=== PATIENT | male | born 1990 | race African-American/Black ===

== ENCOUNTER 2017-01-02 08:50 | Emergency (ER) | payer SELFPAY ==
[~2017-01-02] VITALS: Ht 185.4 cm; Wt 70.0 kg
[~2017-01-02 08:50] MED LIST: IBUP-232 PO; PROC10TA4 PO; Z.0.NO CURRENT MEDS
[2017-01-02 08:51] VITALS: BP 135/88; PULSE 75; RESP 15; TEMP 98.1; O2SAT 95
--- NOTE | 2017-01-02 09:15 | PD ---
HPI Chief Complaint: Skin Problem Time Seen by Provider: 09:15 Travel History International Travel<30 days: No Contact w/Intl Traveler<30days: No Traveled to known affect area: No History of Present Illness HPI 26-year-old male presents to the emergency Department with complaint of a lump to his right groin area days he noticed approximately 2 weeks ago. He denies fever, chills, nausea, vomiting, abdominal pain. Denies dysuria, urgency, frequency, hematuria. Denies testicular swelling or pain. Denies penile discharge, pain. Has not taken any medications or tried any treatments to alleviate his symptoms. No known aggravating or relieving factors. No known allergies. Does not have an established primary care provider. No other modifying factors or associated signs and symptoms. History Past Medical Histgory Medical History: Denies Significant Hx Tetanus Vaccination: < 5 Years Past Surgical History Surgical History: No Previous Surgery Social History Alcohol Use: No Tobacco Use: Yes (10/09 PPD) Allergies-Medications (Allergen,Severity, Reaction): Coded Allergies: No Known Allergies (Verified , 01/02/17) Reported Meds & Prescriptions Reported Meds & Active Scripts Active No Active Prescriptions or Reported Medications Review of Systems Except as stated in HPI: all other systems reviewed are Neg Physical Exam Narrative GENERAL: Well-nourished, well-developed male patient, in no acute distress; afebrile, nontoxic-appearing SKIN: Warm and dry. HEAD: Atraumatic. Normocephalic. EYES: Pupils equal and round. No scleral icterus. No injection or drainage. ENT: Mucosa pink and moist. Airway patent. NECK: Trachea midline. CARDIOVASCULAR: Regular rate. RESPIRATORY: No accessory muscle use. GASTROINTESTINAL: Abdomen soft, non-tender, nondistended. Positive bowel sounds. No hepato-splenomegaly, or palpable masses. No guarding. GENITOURINARY: Circumcised. Testes descended bilaterally without evidence of rotation; without tenderness on palpation, erythema, edema. No lesions or erythema. No urethral discharge. Right groin adenopathy; the area is without erythema; with tenderness on palpation. MUSCULOSKELETAL: No obvious deformities. No clubbing. No cyanosis. No edema. NEUROLOGICAL: Awake and alert. Oriented 3. No obvious cranial nerve deficits. Motor grossly within normal limits. Normal speech. PSYCHIATRIC: Appropriate mood and affect; insight and judgment normal. Data Data Last Documented VS Vital Signs Date Time Temp Pulse Resp B/P Pulse Ox O2 Delivery O2 Flow Rate FiO2 01/02/17 08:51 98.1 75 15 135/88 95 MDM Medical Screen Exam Complete: Yes Emergency Medical Condition: No Differential Diagnosis STD, bacterial infection, trauma Narrative Course Vital signs are stable and the patient is stable for outpatient follow-up and treatment. The patient has no urgent or emergent medical complaints. There is no emergent or urgent medical need at this time. I instructed the patient to follow up with their primary care provider. A medical screening exam was performed: At the time of evaluation the presenting medical condition was determined not to be of an emergent nature. The patient was given the option of receiving additional care, but declined. Patient was given options for additional community resources from which to obtain care. The Patient Has Been advised to seek medical attention for their presenting complaint. The patient has been advised to return to the ER at any time if an emergent condition develops. Primary Impression: Encounter for medical screening examination Scripts No Active Prescriptions or Reported Meds Condition: Stable Bibi Baig Jan 02, 2017 09:15
== END 2017-01-02 09:19 | disposition left against medical advice (07) ==
LOC: NEPB 08:50
DX: R22.41 Localized swelling, mass and lump, right lower limb (principal)
CPT/HCPCS: 99281

== ENCOUNTER 2017-07-22 11:20 | Emergency (ER) | payer SELFPAY ==
[2017-07-22 11:21] VITALS: BP 143/83; PULSE 89; RESP 14; TEMP 98.4; O2SAT 98
[2017-07-23] MEDS ORDERED: IBUP-232 PO (11:18)
== END 2017-07-22 11:40 | disposition left against medical advice (07) ==
LOC: NED 11:20
DX: M79.642 Pain in left hand (principal); Z53.21 Procedure and treatment not carried out due to patient leaving prior to being seen by health care provider
CPT/HCPCS: 99281

== ENCOUNTER 2017-07-23 09:47 | Emergency (ER) | payer SELFPAY ==
[~2017-07-23] VITALS: Ht 185.4 cm; Wt 67.0 kg
[2017-07-23 09:51] VITALS: BP 126/70; PULSE 50; RESP 16; TEMP 97.6; O2SAT 100
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
[2017-07-23] MEDS ORDERED: IBUPROFEN 600 MG TAB PO ONE (10:15)
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
[2017-07-23] MEDS ORDERED: IBUP-232 PO (11:18)
[2017-07-23 11:29] VITALS: RESP 16
== END 2017-07-23 11:37 | disposition home or self-care (01) ==
LOC: PHEFT 09:47
DX: S62.317A Displaced fracture of base of fifth metacarpal bone, left hand, initial encounter for closed fracture (principal); W22.8XXA Striking against or struck by other objects, initial encounter
CPT/HCPCS: 29125; 73110; 73130

== ENCOUNTER 2017-07-25 11:50 | Emergency (ER) | payer SELFPAY ==
[~2017-07-25] VITALS: Ht 185.4 cm; Wt 70.0 kg
[~2017-07-25 11:50] MED LIST changes: -PROC10TA4 PO; -Z.0.NO CURRENT MEDS
[2017-07-25 11:51] VITALS: BP 137/81; PULSE 76; RESP 16; TEMP 98.9; O2SAT 99
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
== END 2017-07-25 12:39 | disposition home or self-care (01) ==
LOC: NEPD 11:50
DX: S62.307A Unspecified fracture of fifth metacarpal bone, left hand, initial encounter for closed fracture (principal); W22.8XXA Striking against or struck by other objects, initial encounter
CPT/HCPCS: 99281